=== PATIENT | female | born 2000 | race African-American/Black ===

== ENCOUNTER 2021-04-02 15:04 | Emergency (ER) | payer OTHER ==
[~2021-04-02] VITALS: Ht 157.5 cm; Wt 110.4 kg
--- NOTE | 2021-04-02 16:54 | PHYS DOC ---
Past History Additional Past Medical Histor: PCOS Past Surgical History: No Surgical History General Adult EDM: Chief Complaint: ABDOMINAL PAIN HPI: HPI: Patient is a 21-year-old female who presents to the ER for right lower quadrant pain with nausea that started this morning. Patient describes the pain is sharp and constant. She rates it 7 out of 10. No treatment prior to arrival. Patient denies vomiting, diarrhea, fevers, dysuria, hematuria. Patient's vital signs are stable and she is afebrile. She has a history of asthma, type 2 diabetes, and PCOS. Review of Systems: Review of Systems: 14 body systems of the review of systems have been reviewed. See HPI for pertinent positive and negative responses, otherwise all other systems are negative, nonpertinent or noncontributory Allergies: Allergies: Allergies Coded Allergies Type Severity Reaction Last Updated Verified No Known Drug Allergies 04/02/21 No Physical Exam: PE: Constitutional: Well developed, well nourished, no acute distress, non-toxic appearance. [] HENT: Normocephalic, atraumatic, moist mucous membranes. Eyes: PERRL, EOMI, conjunctiva normal, no discharge. [] Neck: Normal range of motion, no stridor Cardiovascular:Heart rate regular rhythm, no murmur [] Lungs & Thorax: Bilateral breath sounds clear to auscultation [] Abdomen: Bowel sounds normal, soft, right lower quadrant tenderness with palpation, no rebound tenderness, negative Goins sign, negative Rovsing sign, no masses, no pulsatile masses. [] Skin: Warm, dry, no erythema, no rash. [] Back: Normal range of motion Extremities: No tenderness, no cyanosis, no clubbing, ROM intact, no edema. [] Neurologic: Alert and oriented X 3, normal motor function, normal sensory function, no focal deficits noted. [] Psychologic: Affect normal, judgement normal, mood normal. [] Current Patient Data: Labs: Laboratory Tests Test 04/02/21 16:31 04/02/21 17:34 Urine Collection Type Unknown Urine Color Yellow Urine Clarity Hazy Urine pH 5.5 Urine Specific [place] >=1.030 Urine Protein Neg Urine Glucose (UA) Neg mg/dL Urine Ketones (Stick) Neg mg/dL Urine Blood Trace Urine Nitrite Neg Urine Bilirubin Neg Urine Urobilinogen Dipstick 0.2 mg/dL Urine Leukocyte Esterase Neg Urine RBC 1-2 /HPF Urine WBC 5-10 /HPF Urine Squamous Epithelial Cells Many /LPF Urine Bacteria Mod /HPF Urine Mucus Slight /LPF Urine Test Negative White Blood Count 11.4 x10^3/uL Red Blood Count 4.48 x10^6/uL Hemoglobin 12.0 g/dL Hematocrit 36.8 % Mean Corpuscular Volume 82 fL Mean Corpuscular Hemoglobin 27 pg Mean Corpuscular Hemoglobin Concent 33 g/dL Red Cell Distribution Width 15.0 % Platelet Count 409 x10^3/uL Neutrophils (%) (Auto) 54 % Lymphocytes (%) (Auto) 37 % Monocytes (%) (Auto) 7 % Eosinophils (%) (Auto) 2 % Basophils (%) (Auto) 1 % Neutrophils # (Auto) 6.2 x10^3uL Lymphocytes # (Auto) 4.2 x10^3/uL Monocytes # (Auto) 0.8 x10^3/uL Eosinophils # (Auto) 0.2 x10^3/uL Basophils # (Auto) 0.1 x10^3/uL Current Medications Medications (Trade) Dose Ordered Sig/Mario Route PRN Reason Start Time Stop Time Status Last Admin Dose Admin Sodium Chloride 1,000 ml @ 1,000 mls/hr 1X ONCE IV 04/02/21 17:00 04/02/21 17:59 DC 04/02/21 17:00 Ondansetron HCl (Zofran) 4 mg 1X ONCE IVP 04/02/21 17:00 04/02/21 17:04 DC 04/02/21 17:00 Fentanyl Citrate (Fentanyl 2ml Vial) 50 mcg 1X ONCE IVP 04/02/21 17:00 04/02/21 17:04 DC 04/02/21 17:00 Iohexol (Omnipaque 300 Mg/ml) 75 ml 1X ONCE IV 04/02/21 17:00 04/02/21 17:04 DC 04/02/21 18:14 Vital Signs: Vital Signs Date Time Temp Pulse Resp B/P (MAP) Pulse Ox O2 Delivery O2 Flow Rate FiO2 04/02/21 15:54 97.8 94 16 127/70 98 Room Air EKG: EKG: [] Radiology/Procedures: Radiology/Procedures: PROCEDURE: CT ABD PELV W/ IV CONTRST ONLY CT OF THE ABDOMEN AND PELVIS WITH IV CONTRAST. History: Reason: rlq pain: Comparison:None. Procedure: Contiguous axial images of the abdomen and pelvis were performed after the administration of 75 cc of Omni 300 IV contrast. Oral contrast: No. Findings: A few tiny pulmonary nodules in the lung bases are likely noncalcified granuloma. The appendix is normal. The gallbladder is normal. The uterus and ovaries appear within normal limits. Liver: Unremarkable Spleen: Unremarkable Pancreas: Unremarkable Adrenal Glands: Unremarkable Kidneys: Unremarkable There is no mass or lymphadenopathy. There is no free air. There is no free fluid. The urinary bladder appears normal. Impression: No acute findings. End Impression PQRS Compliance Statement: One or more of the following individualized dose reduction techniques were utilized for this examination: 1. Automated exposure control 2. Adjustment of the mA and/or kV according to patient size 3. Use of iterative reconstruction technique Electronically signed by: Christine Perez III, MD (04/02/2021 6:33 PM) [facility] DICTATED AND SIGNED BY: CHRISTINE PEREZ III, MD DATE: 04/02/211824 CC: GEORGE TAVARES DO; CURLY HENDRIX FAST FOOD SALES ASSISTANT ~MTH0 0 [] Heart Score: C/O Chest Pain: No Risk Factors: Risk Factors: DM, Current or recent (<one month) smoker, HTN, HLP, family history of CAD, obesity. Risk Scores: Score 0 - 3: 2.5% MACE over next 6 weeks - Discharge Home Score 4 - 6: 20.3% MACE over next 6 weeks - Admit for Clinical Observation Score 7 - 10: 72.7% MACE over next 6 weeks - Early Invasive Strategies Course & Med Decision Making: Course & Med Decision Making Pertinent Labs and Imaging studies reviewed. (See chart for details) Patient is a 21-year-old female being seen for right lower quadrant pain with nausea. Work-up in the ER consisted of blood work, urinalysis, and CT scan of abdomen. Patient was treated with fluids, nausea medication, pain medication. Work-up in the ER was unremarkable. Negative CT scan of abdomen. Mild leukocytosis. Patient's urine was noted to have many squamous cells, moderate bacteria, negative leukocytes. Vital signs stable. Patient p.o. challenged and tolerated fluids in the ER. Patient advised to take Tylenol/ibuprofen for pain. She was advised to increase fluids at home. Patient discharged home with nausea medication. I discussed with patient all findings and diagnostic testing as well as the need to follow-up with PCP for further evaluation and treatment or return to the ER if any new or worsening symptoms. Strict return precautions were also discussed at length. Patient voiced understanding and agreement with the plan. Patient is hemodynamically stable at the time of disposition. Dragon Disclaimer: Dragon Disclaimer: This electronic medical record was generated, in whole or in part, using a voice recognition dictation system. Departure Departure: Impression: Primary Impression: Abdominal pain Qualified Codes: R10.31 - Right lower quadrant pain Disposition: HOME / SELF CARE / HOMELESS Condition: GOOD Referrals: GEORGE TAVARES DO (PCP) Patient Instructions: Abdominal Pain, Nausea and Vomiting Additional Instructions: You were seen in the ER for abdominal pain with nausea. Your work-up in the ER was unremarkable. Your physical exam was reassuring. Your vital signs are stable. Increase your fluids at home. Stick to a clear liquid diet over the next 24 hours. This includes soups, Jell-O, Gatorade. Following the first 24 hours you should eat a bland diet, this consists of bananas, rice, applesauce, toast. You are being discharged home with a prescription for nausea medication called Zofran. Please take this as needed for nausea. Please follow-up with your primary care provider tomorrow regarding your ER visit. If you develop worsening of your abdominal pain, nausea, vomiting, blood in your stools or vomit, high fevers refractory to treatment, inability to maintain p.o. intake please return to the ER. EMERGENCY DEPARTMENT GENERAL DISCHARGE INSTRUCTIONS Thank you for coming to [facility] (ED) today and trusting us with you care. We trust that you had a positivie experience in our Emergency Department. If you wish to speak to the department management, you may call the director at [phone]. YOUR FOLLOW UP INSTRUCTIONS ARE FOLLOWS: 1. Do you have a private Doctor? If you do not have a private doctor, please ask for a resource list of physicians or clinics that may be able to assist you with follow up care. 2. The Emergency Physician has interpreted your x-rays. The X-Ray specialist will also review them. If there is a change in the findings, you will be notified in 48 hours when at all possible. 3. A lab test or culture has been done, your results will be reviewed and you will be notified if you need a change in treatment. ADDITIONAL INSTRUCTIONS AND INFORMATION: 1. Your care today has been supervised by a physician who is specially trained in emergency care. Many problems require more than one evaluation for a complete diagnosis and treatment. We recommend that you schedule your follow up appointment as recommended to ensure complete treatment of you illness or injury. If you are unable to obtain follow up care and continue to have a problem, or if your condition worsens, we recommend that you return to the ED. 2. We are not able to safely determine your condition over the phone nor are we able to give sound medical advice over the phone. For these safety reasons, if you call for medical advice we will ask you to come to the ED for further evaluation. 3. If you have any questions regarding these discharge instructions please call the ED at [phone]. SAFETY INFORMATION: In the interest of safety, wellness, and injury prevention; we encourage you to wear your sealbelt, if you smoke; quite smoking, and we encourage family to use a protective helmet for bicycling and other sporting events that present an increased risk for head injury. IF YOUR SYMPTOMS WORSEN OR NEW SYMPTOMS DEVELOP, OR YOU HAVE CONCERNS ABOUT YOUR CONDITION; OR IF YOUR CONDITION WORSENS WHILE YOU ARE WAITING FOR YOUR FOLLOW UP APPOINTMENT; EITHER CONTACT YOUR PRIMARY CARE DOCTOR, THE PHYSICIAN WHOSE NAME AND NUMBER YOU WERE GIVEN, OR RETURN TO THE ED IMMEDIATELY. Scripts Ondansetron Hcl (ZOFRAN) 4 Mg Tablet 4 MG PO TID PRN PRN for NAUSEA for 3 Days, #9 TAB 0 Refills Prov: CURLY HENDRIX APRN 04/02/21 CURLY HENDRIX APRN Apr 02, 2021 16:54
[2021-04-02] MEDS ORDERED: IOHEXOL 300 MG/ML 75 ML VIAL. IV ONE (17:00)
[2021-04-02] MEDS ORDERED: IV NORMAL SALINE 1,000ML 1,000 ML IV ONE (17:00)
[2021-04-02] MEDS ORDERED: ONDANSETRON PF 4 MG/2 ML VIAL. IVP ONE (17:00)
[2021-04-02 18:23] LABS: U PREG PATIENT NEGATIVE (NEG)
[2021-04-02 18:24] LABS: BACTERIA,URINE MOD /HPF (0-FEW); BILIRUBIN,URINE NEG (NEG); CLARITY,URINE HAZY; COLOR,URINE YELLOW; GLUCOSE,URINE NEG (NEG); NITRITE,URINE NEG (NEG); SQUAMOUS EPITHELIAL CELL,UR MANY /LPF; UROBILINOGEN,URINE 0.2 mg/dL (0.2 mg/dL)
[2021-04-02 18:35] LABS: BASO # 0.1 x10^3/uL (0.0-0.2); BASO % 1 % (0-3); EOS # 0.2 x10^3/uL (0.0-0.7); EOS % 2 % (0-3); HEMATOCRIT 36.8 % (36.0-47.0); LYMPH # 4.2 x10^3/uL (1.0-4.8); LYMPH % 37 % (24-48); MEAN CORPUSCULAR HEMOGLOBIN 27 pg (25-35); MEAN CORPUSCULAR HGB CONC 33 g/dL (31-37); MEAN CORPUSCULAR VOLUME 82 fL (79-100); MONO # 0.8 x10^3/uL (0.0-1.1); MONO % 7 % (0-9); NEUT # 6.2 x10^3uL (1.8-7.7); NEUT % 54 % (31-73); PLATELET COUNT 409 x10^3/uL (140-400); RED BLOOD COUNT 4.48 x10^6/uL (3.50-5.40); WHITE BLOOD COUNT 11.4 x10^3/uL (4.0-11.0)
--- NOTE | 2021-04-02 18:35 | RAD ---
CT OF THE ABDOMEN AND PELVIS WITH IV CONTRAST. History: Reason: rlq pain: Comparison:None. Procedure: Contiguous axial images of the abdomen and pelvis were performed after the administration of 75 cc o f Omni 300 IV contrast. Oral contrast: No. Findings: A few tiny pulmonary nodules in the lung bases are likely noncalcified granuloma. The appendix is normal. The gallbladder is normal. The uterus and ovaries appear within normal limits . Liver: Unremarkable Spleen: Unremarkable Pancreas: Unremarkable Adrenal Glands: Unremarkable Kidneys: Unremarkable There is no mass or lymphadenopathy. There is no free air. There is no free fluid. The urinary bladder appears normal. Impression: No acute findings. End Impression PQRS Compliance Statement: One or more of the following individualized dose reduction techniques were utilized for this examinat ion: 1. Automated exposure control 2. Adjustment of the mA and/or kV according to patient size 3. Use of iterative reconstruction technique Electronically signed by: King Banks III, MD (04/02/2021 6:33 PM) [facility]
[2021-04-02 18:45] LABS: CALCIUM 8.9 mg/dL (8.5-10.1); CREATININE 0.8 mg/dL (0.6-1.0); GFR 109.6; POTASSIUM 3.8 mmol/L (3.5-5.1)
[2021-04-02] MEDS ORDERED: ONDA4TAB7 PO (18:45)
[2021-04-02 18:52] LABS: ALBUMIN 3.6 g/dL (3.4-5.0); ALBUMIN/GLOBULIN RATIO 0.9 (1.0-1.7); TOTAL BILIRUBIN 0.3 mg/dL (0.2-1.0); TOTAL PROTEIN 7.5 g/dL (6.4-8.2)
[2021-04-02 19:20] VITALS: BP 132/82
== END 2021-04-02 19:20 | disposition home or self-care (01) ==
LOC: ER 15:04
DX: R10.31 Right lower quadrant pain (principal); Z32.02 Encounter for pregnancy test, result negative
CPT/HCPCS: 36415; 74177; 80053; 81001; 81025; 83690; 85025; 87086; 96361; 96374; 96375; 99285; J2405; J3010; J7030; Q9967

== ENCOUNTER 2021-04-10 22:38 | Emergency (ER) | payer OTHER ==
[~2021-04-10] VITALS: Ht 157.5 cm; Wt 124.0 kg
[~2021-04-10 22:38] MED LIST: ONDA4TAB7 PO
[2021-04-10 23:00] VITALS: BP 129/73
--- NOTE | 2021-04-10 23:30 | PHYS DOC ---
Past History Additional Past Medical Histor: pcos Past Surgical History: Tonsillectomy Alcohol Use: Occasionally General Adult EDM: Chief Complaint: SHORTNESS OF BREATH HPI: HPI: " ... About a hour after I got the Moderna .. the second one.. felt.. like I got the flu... some wheeze.. like.." Patient is a 21 year old female who presents with above hx and complaints malaise, myalgia, wheezing on set after 2nd Moderna vaccination. Pt. on set symptom occurred with in hour of vaccination at 1400 hrs. Pt. denies previous history of immunosuppression. No history of previous Covid infection. No history of recent travel. No history of specific ill contacts. Normally healthy. No history of asthma. Review of Systems: Review of Systems: Constitutional: Subjective fever or chills Eyes: Denies change in visual acuity HENT: Denies nasal congestion or sore throat Respiratory: Subjective wheezing Cardiovascular: Denies chest pain or edema GI: Denies abdominal pain, nausea, vomiting, bloody stools or diarrhea : Denies dysuria Musculoskeletal: Complains of generalized myalgia, arthralgia malaise. Integument: Denies rash Neurologic: Denies headache, focal weakness or sensory changes Endocrine: Denies polyuria or polydipsia Lymphatic: Denies swollen glands Psychiatric: Denies depression or anxiety Family History: Family History: Noncontributory presentation Current Medications: Current Meds: See nursing for home meds Allergies: Allergies: Allergies Coded Allergies Type Severity Reaction Last Updated Verified No Known Drug Allergies 04/10/21 No Physical Exam: PE: Constitutional: Moderate acute distress, non-toxic appearance. [] HENT: Normocephalic, atraumatic, bilateral external ears normal, oropharynx [address], no oral exudates, nose slightly swollen turbinates. Eyes: PERRLA, EOMI, conjunctiva normal, no discharge. [] Neck: Normal range of motion, no tenderness, supple, no stridor. [] Cardiovascular:Heart rate regular rhythm, no murmur [] Lungs & Thorax: Bilateral breath sounds equal and apex with few scattered wheezes on auscultation [] Abdomen: Bowel sounds normal, soft, no tenderness, no masses, no pulsatile masses. Obese Skin: Warm, dry, no erythema, no rash. [] Back: No tenderness, no CVA tenderness. [] Extremities: No tenderness, no cyanosis, no clubbing, ROM intact, no edema. [] Neurologic: Alert and oriented X 3, normal motor function, normal sensory function, no focal deficits noted. [] Psychologic: Affect anxious, judgement normal, mood normal. [] Current Patient Data: Labs: Laboratory Tests Test 04/10/21 23:13 POC Urine HCG, Qualitative hcg negative (Negative) Vital Signs: Vital Signs Date Time Temp Pulse Resp B/P (MAP) Pulse Ox O2 Delivery O2 Flow Rate FiO2 04/10/21 23:00 98.0 106 129/73 99 EKG: EKG: [] Radiology/Procedures: Radiology/Procedures: [] Heart Score: C/O Chest Pain: N/A Risk Factors: Risk Factors: DM, Current or recent (<one month) smoker, HTN, HLP, family history of CAD, obesity. Risk Scores: Score 0 - 3: 2.5% MACE over next 6 weeks - Discharge Home Score 4 - 6: 20.3% MACE over next 6 weeks - Admit for Clinical Observation Score 7 - 10: 72.7% MACE over next 6 weeks - Early Invasive Strategies Course & Med Decision Making: Course & Med Decision Making Pertinent Labs and Imaging studies reviewed. (See chart for details) Patient reports marked improvement with Tylenol, Benadryl and Ventolin inhaler. Patient continue Tylenol and ibuprofen as needed for discomfort. Benadryl 25 to 50 mg 4 times a day. Use MDI 2 puffs 4 times a day. Follow-up primary care. Return if any concerns. Impression: 1. Post vaccination sequela-suspect immune response and not a true allergic reaction [] Dragon Disclaimer: Dragon Disclaimer: This electronic medical record was generated, in whole or in part, using a voice recognition dictation system. Departure Departure: Referrals: PCP,NO (PCP) Dragon Disclaimer This chart was dictated in whole or in part using Voice Recognition software in a busy, high-work load, and often noisy Emergency Department environment. It may contain unintended and wholly unrecognized errors or omissions. Dragon Disclaimer This chart was dictated in whole or in part using Voice Recognition software in a busy, high-work load, and often noisy Emergency Department environment. It may contain unintended and wholly unrecognized errors or omissions. LIZ VEGA MD Apr 10, 2021 23:30
[2021-04-10] MEDS ORDERED: ACETAMINOPHEN 500 MG TABLET PO ONE (23:45)
[2021-04-10] MEDS ORDERED: diphenhydrAMINE HCL 25 MG CAPSULE PO ONE (23:45)
[2021-04-10] MEDS ORDERED: ALBUTEROL SULFATE 8GM INHALER. INH ONE (23:45)
== END 2021-04-11 00:58 | disposition home or self-care (01) ==
LOC: ER 22:38
DX: T88.1XXA Other complications following immunization, not elsewhere classified, initial encounter (principal); J11.1 Influenza due to unidentified influenza virus with other respiratory manifestations; R06.2 Wheezing
CPT/HCPCS: 81025; 99283; Q0163

== ENCOUNTER 2021-04-15 17:11 | Emergency (ER) | payer OTHER ==
[~2021-04-15] VITALS: Ht 157.5 cm; Wt 124.0 kg
--- NOTE | 2021-04-15 17:55 | PHYS DOC ---
Past History Additional Past Medical Histor: pcos, PTSD Past Surgical History: Tonsillectomy Alcohol Use: Occasionally General Adult EDM: Chief Complaint: OVERDOSE HPI: HPI: 21-year-old female presents via EMS for suicide attempt. The patient is on Elavil 50 mg tablets. She took about half a bottle in an attempt to harm herself. She started to regret it soon after. She currently does not want to harm herself. She is supposed to take 2 of these pills at night every day but s he does not take them very consistently. The prescription was filled February 14, 2021. She estimates up to half a bottle was left. She denies taking anything else. She has been admitted for psychiatric issues in the past. No previous suicide attempts. Review of Systems: Review of Systems: Constitutional: Denies fever or chills Eyes: Denies change in visual acuity HENT: Denies nasal congestion or sore throat Respiratory: Denies cough or shortness of breath Cardiovascular: Denies chest pain or edema GI: Denies abdominal pain, nausea, vomiting, bloody stools or diarrhea : Denies dysuria Musculoskeletal: Denies back pain or joint pain Integument: Denies rash Neurologic: Denies headache, focal weakness or sensory changes Endocrine: Denies polyuria or polydipsia Lymphatic: Denies swollen glands Psychiatric: Depression, suicide attempt. Allergies: Allergies: Allergies Coded Allergies Type Severity Reaction Last Updated Verified No Known Drug Allergies 04/10/21 No Physical Exam: PE: Constitutional: Well developed, well nourished, morbidly obese, no acute distr ess, non-toxic appearance. [] HENT: Normocephalic, atraumatic, bilateral external ears normal, oropharynx m oist, no oral exudates, nose normal. [] Eyes: PERRLA, EOMI, conjunctiva normal, no discharge. [] Neck: Normal range of motion, no tenderness, supple, no stridor. [] Cardiovascular: Heart rate 92, regular rhythm, no murmur [] Lungs & Thorax: Bilateral breath sounds clear to auscultation [] Abdomen: Bowel sounds normal, soft, no tenderness, no masses, no pulsatile masses. [] Skin: Warm, dry, no erythema, no rash. [] Back: No tenderness, no CVA tenderness. [] Extremities: No tenderness, no cyanosis, no clubbing, ROM intact, no edema. [] Neurologic: Alert and oriented X 3, normal motor function, normal sensory function, no focal deficits noted. [] Psychologic: Affect flat, mood depressed. [] Current Patient Data: Vital Signs: Vital Signs Date Time Temp Pulse Resp B/P (MAP) Pulse Ox O2 Delivery O2 Flow Rate FiO2 04/15/21 17:20 98.4 103 14 140/82 98 Room Air EKG: EKG: Sinus rhythm, rate 98, normal axis, no ST elevation or depression. QRS 84 ms. [] Radiology/Procedures: Radiology/Procedures: [] Heart Score: C/O Chest Pain: N/A Risk Factors: Risk Factors: DM, Current or recent (<one month) smoker, HTN, HLP, family history of CAD, obesity. Risk Scores: Score 0 - 3: 2.5% MACE over next 6 weeks - Discharge Home Score 4 - 6: 20.3% MACE over next 6 weeks - Admit for Clinical Observation Score 7 - 10: 72.7% MACE over next 6 weeks - Early Invasive Strategies Course & Med Decision Making: Course & Med Decision Making Pertinent Labs and Imaging studies reviewed. (See chart for details) Patient ingested these pills less than 2 hours ago. I will give 25 mg of charcoal. EKG is within normal limits. QRS is 84 ms. The patient's work-up is pending. I am signing the patient out to Dr. Rg at 1800. [] Shruthi Disclaimer: Shruthi Disclaimer: This electronic medical record was generated, in whole or in part, using a voice recognition dictation system. Departure Departure: Referrals: PCP,NO (PCP) COBY COLLINS DO Apr 15, 2021 17:55
--- NOTE | 2021-04-15 17:57 | EKG ---
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
[2021-04-15] MEDS ORDERED: CHARCOAL AQUA 25 GM/120 ML SUSPENSION. PO ONE (18:00)
[2021-04-15 18:05] LABS: BASO # 0.1 x10^3/uL (0.0-0.2); BASO % 0 % (0-3); EOS # 0.4 x10^3/uL (0.0-0.7); EOS % 3 % (0-3); HEMATOCRIT 34.5 % (36.0-47.0); HEMOGLOBIN 11.2 g/dL (12.0-15.5); LYMPH # 3.2 x10^3/uL (1.0-4.8); LYMPH % 25 % (24-48); MEAN CORPUSCULAR HEMOGLOBIN 27 pg (25-35); MEAN CORPUSCULAR HGB CONC 33 g/dL (31-37); MEAN CORPUSCULAR VOLUME 82 fL (79-100); MONO # 0.9 x10^3/uL (0.0-1.1); MONO % 7 % (0-9); NEUT # 8.1 x10^3uL (1.8-7.7); NEUT % 64 % (31-73); PLATELET COUNT 383 x10^3/uL (140-400); RED BLOOD COUNT 4.22 x10^6/uL (3.50-5.40); RED CELL DISTRIBUTION WIDTH 14.6 % (11.5-14.5); WHITE BLOOD COUNT 12.7 x10^3/uL (4.0-11.0)
[2021-04-15 18:08] LABS: CALCIUM 9.1 mg/dL (8.5-10.1); CREATININE 0.8 mg/dL (0.6-1.0); GFR 109.6; POTASSIUM 3.4 mmol/L (3.5-5.1)
[2021-04-15 18:13] LABS: ALBUMIN 3.2 g/dL (3.4-5.0); ALBUMIN/GLOBULIN RATIO 0.9 (1.0-1.7); TOTAL BILIRUBIN 0.2 mg/dL (0.2-1.0); TOTAL PROTEIN 6.8 g/dL (6.4-8.2)
[2021-04-15 18:16] LABS: ACETAMIN < 2 mcg/mL (10-30); SALIC < 2.8 mg/dL (2.8-20.0)
[2021-04-15 18:19] LABS: AMPHETAMINE/METHAMPHETAMINE NEG (NEG); BARBITURATES NEG (NEG); BENZODIAZEPINES NEG (NEG); CANNABINOIDS NEG (NEG); COCAINE NEG (NEG); METHADONE NEG (NEG); OPIATES NEG (NEG); PHENCYCLIDINE NEG (NEG)
[2021-04-15 18:32] LABS: BILIRUBIN,URINE NEG (NEG); CLARITY,URINE CLEAR; COLOR,URINE YELLOW; GLUCOSE,URINE NEG (NEG)
[2021-04-15 18:33] LABS: BACTERIA,URINE FEW /HPF (0-FEW); NITRITE,URINE NEG (NEG); RBC,URINE OCC /HPF (0-2); SQUAMOUS EPITHELIAL CELL,UR MOD /LPF; UROBILINOGEN,URINE 0.2 mg/dL (0.2 mg/dL); WBC,URINE OCC /HPF (0-4)
[2021-04-15] MEDS ORDERED: IV RINGERS SOLUTION,LACTATED 1,000 ML IV ONE ×2 (19:00→22:30)
[2021-04-15] MEDS ORDERED: PROMETHAZINE 25 MG SUPP.RECT. ONE (19:24)
[2021-04-15] MEDS ORDERED: PROMETHAZINE 25 MG SUPP.RECT. PR ONE (19:30)
[2021-04-15 20:28] LABS: BGAS PH 7.42 (7.35-7.45)
--- NOTE | 2021-04-16 03:53 | EKG ---
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
--- NOTE | 2021-04-16 03:54 | EKG ---
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
[2021-04-16 07:59] VITALS: BP 119/79
== END 2021-04-16 08:20 ==
LOC: ER 17:11
DX: T43.012A Poisoning by tricyclic antidepressants, intentional self-harm, initial encounter (principal); F43.10 Post-traumatic stress disorder, unspecified; F32.9 Major depressive disorder, single episode, unspecified; Z20.822 Contact with and (suspected) exposure to COVID-19; Y92.89 Other specified places as the place of occurrence of the external cause
CPT/HCPCS: 36415; 36600; 80053; 80307; 80329; 81001; 82803; 85025; 87426; 93005; 96360; 96361; 99285; J7120; U0003; G0480

== ENCOUNTER 2021-06-24 15:29 | Emergency (ER) | payer OTHER ==
[~2021-06-24] VITALS: Ht 157.5 cm; Wt 125.0 kg
[2021-06-24 15:35] VITALS: BP 155/70
--- NOTE | 2021-06-24 16:01 | PHYS DOC ---
Past History Additional Past Medical Histor: pcos, PTSD (ANNA AYALA CONE TREATER) Past Surgical History: Tonsillectomy (ANNA AYALA CONE TREATER) Alcohol Use: Occasionally (ANNA AYALA CONE TREATER) Adult General Chief Complaint Chief Complaint: VAGINAL BLEEDING [facility] HPI Patient is a 21-year-old female patient 1 para 0 currently 6 weeks presenting today complaining of 10 out of 10 right lower quadrant/pelvic pain with spotting, symptoms began this morning. She states she had intercourse last night. Patient denies any nausea, or vomiting. Denies any back pain. Denies any urgency frequency or dysuria. She states she has not been seen by the [employer] yet. She states she has a planned appointment at 8 weeks of . (ANNA AYALA CONE TREATER) Review of Systems Review of Systems Constitutional: Denies fever or chills [] Eyes: Denies change in visual acuity, redness, or eye pain [] HENT: Denies nasal congestion or sore throat [] Respiratory: Denies cough or shortness of breath [] Cardiovascular: No additional information not addressed in HPI [] GI: Reports vaginal bleeding and abdominal pain in denies nausea, vomiting, bloody stools or diarrhea [] : Denies dysuria or hematuria [] Musculoskeletal: Denies back pain or joint pain [] Integument: Denies rash or skin lesions [] Neurologic: Denies headache, focal weakness or sensory changes [] All other systems were reviewed and found to be within normal limits, except as documented in this note. (ANNA AYALA CONE TREATER) Allergies Allergies Allergies Coded Allergies Type Severity Reaction Last Updated Verified No Known Drug Allergies 04/10/21 No (ANNA AYALA APRN) Physical Exam Physical Exam Constitutional: Well developed, well nourished, no acute distress, non-toxic appearance. [] HENT: Normocephalic, atraumatic, bilateral external ears normal, oropharynx moist, no oral exudates, nose normal. [] Eyes: PERRLA, EOMI, conjunctiva normal, no discharge. [] Neck: Normal range of motion, no tenderness, supple, no stridor. [] Cardiovascular:Heart rate regular rhythm, no murmur [] Lungs & Thorax: Bilateral breath sounds clear to auscultation [] Abdomen: Bowel sounds normal, soft, no masses, no pulsatile masses. [] Pelvic exam External pelvic appears normal, cervix is visualized, closed, no no CMT, slight right adnexal tenderness, no left adnexal tenderness. Trace amount of blood in the vaginal vault Skin: Warm, dry, no erythema, no rash. [] Back: No tenderness, no CVA tenderness. [] Extremities: No tenderness, no cyanosis, no clubbing, ROM intact, no edema. [] Neurologic: Alert and oriented X 3, normal motor function, normal sensory f unction, no focal deficits noted. [] Psychologic: Affect normal, judgement normal, mood normal. [] (ANNA AYALA APRN) Current Patient Data Vital Signs Vital Signs Date Time Temp Pulse Resp B/P (MAP) Pulse Ox O2 Delivery O2 Flow Rate FiO2 06/24/21 15:35 98.1 104 18 155/70 (98) 97 Lab Results Laboratory Tests Test 06/24/21 15:49 POC Urine HCG, Qualitative hcg positive (Negative) (ANNA AYALA APRN) EKG EKG [] (ANNA AYALA APRN) Radiology/Procedures Radiology/Procedures []PROCEDURE: TRANSVAGINAL Examination: Obstetric ultrasound less than 14 weeks HISTORY: History of vaginal bleeding COMPARISON: None available FINDINGS: The uterus measures 7.9 x 4.1 x 3.5 cm. Intrauterine gestational sac identified. Yolk sac is identified. Ultrasound age corresponds to 5 weeks and 2 days. A pole is not identified. Estimated date of delivery by ultrasound 02/22/2022. The right ovary measures 3.3 x 2.5 x 2.2 cm. The left ovary measures 3.8 x 2.4 x 2.4 cm. IMPRESSION: Intrauterine gestational sac identified corresponding to 5 weeks and 2 days. pole is not identified. Could be very early . Failed first trimester is not completely excluded. Close interval follow-up examination and follow-up serial quantitative beta-hCG levels is recommended. Electronically signed by: Declan Gomes MD (06/24/2021 4:52 PM) [id number] DICTATED AND SIGNED BY: DECLAN GOMES MD DATE: 06/24/21 1646 CC: GEORGE TAVARES DO; ANNA AYALA APRN ~MTH0 0 (ANNA AYALA CONE TREATER) Heart Score C/O Chest Pain: N/A Risk Factors: Risk Factors: DM, Current or recent (<one month) smoker, HTN, HLP, family history of CAD, obesity. Risk Scores: Risk Factors: DM, Current or recent (<one month) smoker, HTN, HLP, family history of CAD, obesity. (ANNA AYALA APRN) Course & Med Decision Making Course & Med Decision Making Pertinent Labs and Imaging studies reviewed. (See chart for details) This is a 21-year-old female patient presenting to the ED today complaining of vaginal bleeding in and right lower quadrant /pelvic pain since this morning. Positive urine . CBC with a WBC of 15.9. Hemoglobin 11.1, hematocrit 35.0 Beta Hcg 1888, blood group B+ UA is negative. OB ultrasound noted for an intrauterine gestational sac identified corresponding to 5 weeks and 2 days. pole is not identified. Could be very early . Failed first trimester is not completely excluded. Close interval follow-up examination and follow-up serial quantitative beta-hCG levels is recommended. Dr. Mckenna also evaluated patient Discharge home. Pelvic rest recommended. Follow-up with OB in the course of this week. Provided return precautions. (ANNA AYALA APRN) Course & Med Decision Making I was the Attending physician on the above date of service of this patient. This patient was evaluated, examined, treated, and dispositioned from the emergency department by the mid-level practitioner. I personally saw patient as well and repeated aspects of history and physical exam. Nonacute abdomen. I disclosed entirety of ER findings that included elevated white count and concern of right lower quadrant pain. I discussed this might be an acute presentation of more concerning pathology such as appendicitis but patient's overall abdominal exam benign. I discussed role of further diagnostic work-up such as CT abdomen pelvis in a patient but patient reports that the pain was not that severe and deferred at this time. As such, close [employer] follow-up advised with specific return precautions discussed with good understanding by patient and significant other at bedside Electronically signed, Maite Mckenna DO (MAITE MCKENNA DO) Shruthi Disclaimer Dragon Disclaimer This electronic medical record was generated, in whole or in part, using a voice recognition dictation system. (ANNA AYALA CONE TREATER) Departure Departure: Impression: Primary Impression: Threatened miscarriage Disposition: HOME / SELF CARE / HOMELESS Condition: STABLE Referrals: GEORGE TAVARES DO (PCP) follow up with your OBGYN in the course of this week Patient Instructions: Threatened Miscarriage, [id number] Additional Instructions: You were evaluated in the emergency room for abdominal pain with vaginal bleeding in . You are currently 5 weeks 2 days . Maintain pelvic rest until you are seen by the BUSINESS COMPUT[employer]ER and the bleeding has stopped. Do not do any strenuous activities, no intercourse until the bleeding has completely stopped. Please come back to the ED at any point symptoms worsen ANNA AYALA APRN Jun 24, 2021 16:01 MAITE MCKENNA DO Jun 26, 2021 07:10
[2021-06-24 16:46] LABS: BILIRUBIN,URINE NEG (NEG); CLARITY,URINE CLEAR; COLOR,URINE YELLOW; GLUCOSE,URINE NEG (NEG)
[2021-06-24 16:47] LABS: BACTERIA,URINE 0 /HPF (0-FEW); NITRITE,URINE NEG (NEG); RBC,URINE OCC /HPF (0-2); SQUAMOUS EPITHELIAL CELL,UR FEW /LPF; WBC,URINE 0 /HPF (0-4)
[2021-06-24 16:48] LABS: BASO # 0.1 x10^3/uL (0.0-0.2); BASO % 1 % (0-3); EOS # 0.4 x10^3/uL (0.0-0.7); EOS % 2 % (0-3); HEMOGLOBIN 11.3 g/dL (12.0-15.5); LYMPH # 4.1 x10^3/uL (1.0-4.8); LYMPH % 26 % (24-48); MEAN CORPUSCULAR HEMOGLOBIN 26 pg (25-35); MEAN CORPUSCULAR HGB CONC 32 g/dL (31-37); MEAN CORPUSCULAR VOLUME 80 fL (79-100); MONO # 0.8 x10^3/uL (0.0-1.1); MONO % 5 % (0-9); NEUT # 10.5 x10^3uL (1.8-7.7); NEUT % 66 % (31-73); PLATELET COUNT 468 x10^3/uL (140-400); RED BLOOD COUNT 4.35 x10^6/uL (3.50-5.40); RED CELL DISTRIBUTION WIDTH 15.3 % (11.5-14.5); WHITE BLOOD COUNT 15.9 x10^3/uL (4.0-11.0)
--- NOTE | 2021-06-24 16:54 | RAD ---
Examination: Obstetric ultrasound less than 14 weeks HISTORY: History of vaginal bleeding COMPARISON: None available FINDINGS: The uterus measures 7.9 x 4.1 x 3.5 cm. Intrauterine gestational sac identified. Yolk sac is identifi ed. Ultrasound age corresponds to 5 weeks and 2 days. A pole is not identified. Estimated date of delivery by ultrasound 02/22/2022. The right ovary measures 3.3 x 2.5 x 2.2 cm. The left ovary dejuan ures 3.8 x 2.4 x 2.4 cm. IMPRESSION: Intrauterine gestational sac identified corresponding to 5 weeks and 2 days. pole is not identi fied. Could be very early . Failed first trimester is not completely excluded. Christina se interval follow-up examination and follow-up serial quantitative beta-hCG levels is recommended. Electronically signed by: Declan Gomes MD (06/24/2021 4:52 PM) [id number]
[2021-06-26 17:14] LABS: CHLAMYDIA PROBE Negative (Negative)
== END 2021-06-24 17:55 | disposition home or self-care (01) ==
LOC: ER 15:29
DX: O20.0 Threatened abortion (principal); Z3A.01 Less than 8 weeks gestation of pregnancy
CPT/HCPCS: 36415; 76817; 81001; 81025; 84702; 85025; 86850; 86900; 86901; 87491; 87591; 99284; Q0111